=== PATIENT | female | born 1945 | race Caucasian/White ===

== ENCOUNTER 2017-07-27 08:59 | Emergency (ER) | payer MEDICARE, BC ==
--- NOTE | 2017-07-27 09:22 | EDM.PDOC ---
ED HPI GENERAL MEDICAL PROBLEM - General Chief Complaint: Chest Pain Stated Complaint: chest pain Time Seen by Provider: 07/27/17 09:00 Source of Information: Reports: Patient, Family History Limitations: Reports: No Limitations - History of Present Illness INITIAL COMMENTS - FREE TEXT/NARRATIVE: 72-year-old female with no prior cardiac history was in synagogue this morning and developed a substernal chest pain that radiated into her back. She felt generalized malaise and panicky, somewhat short of breath. When it hadn't resolved after 20-30 minutes she came in to be checked but its gone now. She denies any palpitations, abdominal pain, nausea or vomiting, or recent illness or fever. She has never had any cardiac testing in the past other than a preoperative EKG. Onset: Sudden Duration: Other (Pain lasted just over half an hour) Location: Reports: Chest Severity: Moderate Associated Symptoms: Reports: Chest Pain, Malaise, Shortness of Breath. Denies : Cough, Fever/Chills, Headaches, Nausea/Vomiting Chest Pain Score (Numeric/FACES): 6 - Related Data Allergies Allergy/AdvReac Type Severity Reaction Status Date / Time celecoxib [From Celebrex] Allergy Swelling Verified 07/27/17 09:10 Penicillins Allergy Other Verified 07/27/17 09:10 Home Meds: Home Meds Fexofenadine [Vaishnavi] 60 mg PO DAILY 01/18/14 [History] Metoprolol Tartrate [Lopressor] 25 mg PO BID 01/18/14 [History] Omeprazole 20 mg PO DAILY 01/18/14 [History] Pramipexole [Mirapex] 1 mg PO DAILY 01/18/14 [History] Sertraline HCl 50 mg PO DAILY 01/18/14 [History] Calcium Carbonate [Calcium] 500 mg PO BID 01/20/14 [History] Gabapentin 800 mg PO BID 11/17/14 [History] metFORMIN [Glucophage] 1,000 mg PO DAILY 11/17/14 [History] Acetaminophen [Tylenol Extra Strength] 500 mg PO Q6H PRN 05/02/17 [History] atorvaSTATin [Lipitor] 10 mg PO BEDTIME 05/02/17 [History] Past Medical History HEENT History: Reports: Impaired Vision Other HEENT History: wears glasses Cardiovascular History: Reports: High Cholesterol, Hypertension Gastrointestinal History: Reports: Colon Polyp, GERD 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: Psychiatric History: Reports: Depression Endocrine/Metabolic History: Reports: Diabetes, Type II, Obesity/BMI 30+ - Past Surgical History HEENT Surgical History: Reports: Other (See Below) Other HEENT Surgeries/Procedures: wisdom teeth GI Surgical History: Reports: Colonoscopy Female Surgical History: Reports: Oophorectomy Other Female Surgeries/Procedures: 1-oophorectomy Neurological Surgical History: Reports: Lumbar Spine Other Musculoskeletal Surgeries/Procedures:: kassie bunyans, knee surgery Social & Family History - Family History Family Medical History: Noncontributory - Tobacco Use Smoking Status *Q: Never Smoker - Caffeine Use Caffeine Use: Reports: Coffee - Recreational Drug Use Recreational Drug Use: No ED ROS GENERAL - Review of Systems Review Of Systems: See Below Constitutional: Denies: Fever, Chills Respiratory: Reports: Shortness of Breath Cardiovascular: Reports: Chest Pain. Denies: Palpitations GI/Abdominal: Denies: Abdominal Pain, Nausea, Vomiting : Reports: No Symptoms Neurological: Reports: No Symptoms Psychiatric: Reports: Anxiety ED EXAM, GENERAL - Physical Exam Exam: See Below Exam Limited By: No Limitations General Appearance: Alert, No Apparent Distress Respiratory/Chest: No Respiratory Distress, Lungs Clear Cardiovascular: Regular Rate, Rhythm, No Murmur. No: Extra Beats GI/Abdominal: Soft, Non-Tender Neurological: Alert, Oriented EKG INTERPRETATION Rhythm: NSR Course - Vital Signs Last Recorded V/S: Last Vital Signs Temp 98.1 F 07/27/17 09:05 Pulse 68 07/27/17 10:00 Resp 20 07/27/17 10:00 BP 105/72 07/27/17 10:00 Pulse Ox 98 07/27/17 10:00 - Orders/Labs/Meds Orders: Active Orders 24 hr Category Date Time Status EKG Documentation Completion [RC] ASDIRECTED Care 07/27/17 09:21 Active EKG 12 Lead [EK] Routine Ther 07/27/17 09:21 Ordered Labs: Laboratory Tests 07/27/17 07/27/17 Range/Units 09:30 09:30 WBC 5.1 (4.5-11.0) K/uL RBC 4.67 (3.30-5.50) M/uL Hgb 12.6 (12.0-15.0) g/dL Hct 40.1 (36.0-48.0) % MCV 86 (80-98) fL MCH 27 (27-31) pg MCHC 31 L (32-36) % Plt Count 212 (150-400) K/uL Neut % (Auto) 65 (36-66) % Lymph % (Auto) 25 (24-44) % [place] % (Auto) 7 H (2-6) % Eos % (Auto) 3 (2-4) % Baso % (Auto) 0 (0-1) % Sodium 141 (140-148) mmol/L Potassium 4.5 (3.6-5.2) mmol/L Chloride 105 (100-108) mmol/L Carbon Dioxide 29 (21-32) mmol/L Anion Gap 6.7 (5.0-14.0) mmol/L BUN 25 H (7-18) mg/dL Creatinine 1.1 H (0.6-1.0) mg/dL Est Cr Clr Drug Dosing 37.10 mL/min Estimated GFR (MDRD) 49 L (>60) Glucose 129 H (74-106) mg/dL Calcium 8.5 (8.5-10.1) mg/dL Total Bilirubin 0.5 (0.2-1.0) mg/dL AST 16 (15-37) U/L ALT 23 (12-78) U/L Alkaline Phosphatase 85 (46-116) U/L Troponin I < 0.017 (0.000-0.056) ng/mL Total Protein 7.1 (6.4-8.2) g/dL Albumin 3.1 L (3.4-5.0) g/dL Globulin 4.0 H (2.3-3.5) g/dL Albumin/Globulin Ratio 0.8 L (1.2-2.2) - Re-Assessments/Exams Free Text/Narrative Re-Assessment/Exam: 07/27/17 10:21 CBC, CMP, troponin and EKG were obtained. EKG showed no acute findings. Troponin was negative, CBC was normal. Patient was observed for 2 hours in the emergency room and had no further symptoms. She'll return at 3 PM this afternoon in an additional 5 hours for repeat troponin, or return sooner if pain recurs. 07/27/17 16:20 Patient return in a troponin repeated. It was still 0, she had developed no new symptoms. She was encouraged to set up a stress test in the near future or return if symptoms recur. Departure - Departure Time of Disposition: 10:35 Disposition: Home, Self-Care 01 Condition: Good Clinical Impression: Chest pain Qualifiers: Chest pain type: precordial pain Qualified Code(s): R07.2 - Precordial pain - Discharge Information Instructions: Nonspecific Chest Pain Referrals: PCP,None [Primary Care Provider] - Forms: ED Department Discharge Care Plan Goals: Return at 3 PM for an outpatient troponin, I will discuss the results with you when available. - My Orders Last 24 Hours: My Active Orders 07/27/17 09:21 EKG Documentation Completion [RC] ASDIRECTED EKG 12 Lead [EK] Routine - Assessment/Plan Last 24 Hours: My Active Orders 07/27/17 09:21 EKG Documentation Completion [RC] ASDIRECTED EKG 12 Lead [EK] Routine
[2017-07-27 10:32] VITALS: BP 105/72
== END 2017-07-27 10:35 | disposition home or self-care (01) ==
LOC: JP.ED 08:59
DX: R07.2 Precordial pain (principal); E11.9 Type 2 diabetes mellitus without complications; I10 Essential (primary) hypertension; E78.00 Pure hypercholesterolemia, unspecified; K21.9 Gastro-esophageal reflux disease without esophagitis; Z79.84 Long term (current) use of oral hypoglycemic drugs; Z79.899 Other long term (current) drug therapy; Z88.0 Allergy status to penicillin; Z88.1 Allergy status to other antibiotic agents
CPT/HCPCS: 36415; 80053; 84484; 85025; 93005; 99284; 99285-25

== ENCOUNTER 2020-06-27 09:15 | Emergency (ER) | payer MEDICARE ==
[2020-06-27] MEDS ORDERED: Aspirin 81 MG Tab.Chew PO ONE (10:13)
--- NOTE | 2020-06-27 10:13 | EDM.PDOC ---
ED HPI GENERAL MEDICAL PROBLEM - General Chief Complaint: Chest Pain Stated Complaint: PAIN ACROSS CHEST LAST NIGHT Time Seen by Provider: 06/27/20 10:40 Source of Information: Reports: Patient, Old Records, RN History Limitations: Reports: No Limitations - History of Present Illness INITIAL COMMENTS - FREE TEXT/NARRATIVE: 75 yo nonsmoking female with NIDDM presents after a 2 hr period of chest pressure last night that came on while sitting. She had no associated sx's. She called triage today and was told to come to the ER. She has no pHx of CAD. She was seen in the ER in the past once for something like this and nothing was found. No calf pain or LE edema. An ECHO in 03/22 showed no significant pathology. Onset: Gradual Onset Date: 06/26/20 Onset Time: 22:00 Duration: Hour(s): (~2 hrs), Resolved Prior to Arrival Location: Reports: Chest Quality: Reports: Pressure Severity: Mild Improves with: Reports: Other (time) Worsens with: Reports: Other (unknown) Context: Reports: Other (See HPI) Associated Symptoms: Reports: Chest Pain. Denies: Cough, Diaphoresis, Fever/Chills, Nausea/Vomiting, Shortness of Breath (not any worse than usual) Treatments CRITICAL CARE UNIT NURSE: Reports: Other (see below) (none) - Related Data Allergies Allergy/AdvReac Type Severity Reaction Status Date / Time celecoxib [From Celebrex] Allergy Intermediate Swelling Verified 06/27/20 10:10 Penicillins Allergy Unknown Other Verified 06/27/20 10:10 Home Meds: Home Meds Fexofenadine [Vaishnavi] 60 mg PO DAILY 01/18/14 [History] Metoprolol Tartrate [Lopressor] 12.5 mg PO BID 01/18/14 [History] Omeprazole 20 mg PO BEDTIME 01/18/14 [History] Pramipexole [Mirapex] 1 mg PO BEDTIME 01/18/14 [History] Sertraline HCl 50 mg PO DAILY 01/18/14 [History] Calcium Carbonate [Calcium] 500 mg PO BID 01/20/14 [History] Gabapentin 800 mg PO BID 11/17/14 [History] metFORMIN [Glucophage] 1,000 mg PO DAILY 11/17/14 [History] Acetaminophen [Tylenol Extra Strength] 1,000 mg PO Q6H PRN 05/02/17 [History] atorvaSTATin [Lipitor] 10 mg PO BEDTIME 05/02/17 [History] Aspirin 81 mg PO DAILY 06/27/20 [History] Past Medical History HEENT History: Reports: Impaired Vision Other HEENT History: wears glasses Cardiovascular History: Reports: High Cholesterol, Hypertension Gastrointestinal History: Reports: Colon Polyp, GERD 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: Psychiatric History: Reports: Depression Endocrine/Metabolic History: Reports: Diabetes, Type II, Obesity/BMI 30+ - Past Surgical History HEENT Surgical History: Reports: Other (See Below) Other HEENT Surgeries/Procedures: wisdom teeth GI Surgical History: Reports: Colonoscopy Female Surgical History: Reports: Oophorectomy Other Female Surgeries/Procedures: 1-oophorectomy Neurological Surgical History: Reports: Lumbar Spine Other Musculoskeletal Surgeries/Procedures:: kassie bunyans, knee surgery Social & Family History - Family History Family Medical History: No Pertinent Family History - Caffeine Use Caffeine Use: Reports: Coffee ED ROS GENERAL - Review of Systems Review Of Systems: See Below Constitutional: Reports: No Symptoms HEENT: Reports: No Symptoms Respiratory: Reports: No Symptoms Cardiovascular: Reports: Chest Pain, Dyspnea on Exertion (not new) Endocrine: Reports: No Symptoms GI/Abdominal: Reports: No Symptoms : Reports: No Symptoms Musculoskeletal: Reports: No Symptoms Skin: Reports: No Symptoms Neurological: Reports: No Symptoms ED EXAM, GENERAL - Physical Exam Exam: See Below Exam Limited By: No Limitations General Appearance: Alert, WD/WN, No Apparent Distress, Obese Eye Exam: Bilateral Eye: Normal Inspection Ears: Normal External Exam, Normal Canal, Hearing Grossly Normal Ear Exam: Bilateral Ear: Auricle Normal, Canal Normal Nose: Normal Inspection, No Blood Throat/Mouth: Normal Inspection, Normal Lips, Normal Oropharynx, Normal Voice, No Airway Compromise Head: Atraumatic, Normocephalic Neck: Normal Inspection Respiratory/Chest: No Respiratory Distress, Lungs Clear, Normal Breath Sounds, No Accessory Muscle Use Cardiovascular: Regular Rate, Rhythm, No Edema GI/Abdominal: Normal Bowel Sounds, Soft, Non-Tender, No Distention Extremities: Normal Inspection, Normal Range of Motion, Non-Tender, No Pedal Edema Neurological: Alert, Oriented, CN II-XII Intact, Normal Cognition, No Motor/Sensory Deficits Psychiatric: Normal Affect, Normal Mood Skin Exam: Warm, Dry, Intact, Normal Color, No Rash #1 Interpretation EKG Date: 06/27/20 Time: 09:55 Rhythm: NSR Rate (Beats/Min): 69 [place]: Normal P-Wave: Present QRS: Normal ST-T: Normal QT: Normal Comparison: No Change (LVH suggested) Course - Vital Signs Last Recorded V/S: Last Vital Signs Temp 36.5 C 06/27/20 10:29 Pulse 63 06/27/20 13:04 Resp 20 06/27/20 13:04 BP 180/86 H 06/27/20 13:04 Pulse Ox 92 L 06/27/20 13:04 - Orders/Labs/Meds Orders: Active Orders 24 hr Category Date Time Status Cardiac Monitoring [RC] .As Directed Care 06/27/20 09:17 Active EKG Documentation Completion [RC] ASDIRECTED Care 06/27/20 09:16 Active Iopamidol [Isovue-370 (76%)] Med 06/27/20 12:15 Active 100 ml IV . DIRECTED Sodium Chloride 0.9% [Normal Saline] 100 ml Med 06/27/20 12:15 Active IV ASDIRECTED Sodium Chloride 0.9% [Saline Flush] Med 06/27/20 12:01 Active 10 ml FLUSH ONETIME PRN EKG 12 Lead [EK] Routine Ther 06/27/20 09:16 Ordered Medication Orders Sodium Chloride (Normal Saline) 100 mls @ 4 mls/sec IV ASDIRECTED [facility] Last Admin: 06/27/20 12:34 Dose: 4 mls/sec Documented by: SYDNI Iopamidol (Iopamidol 755 Mg/Ml 100 Ml Bottle) 100 ml IV . DIRECTED [facility] Last Admin: 06/27/20 12:34 Dose: 100 ml Documented by: SYDNI Sodium Chloride (Sodium Chloride 0.9% 10 Ml Syringe) 10 ml FLUSH ONETIME PRN PRN Reason: per radiology protocol Last Admin: 06/27/20 12:34 Dose: 10 ml Documented by: SYDNI Labs: Laboratory Tests 06/27/20 06/27/20 06/27/20 Range/Units 10:24 10:24 11:01 WBC 4.8 (4.5-11.0) K/uL RBC 4.35 (3.30-5.50) M/uL Hgb 13.1 (12.0-15.0) g/dL Hct 41.3 (36.0-48.0) % MCV 95 (80-98) fL MCH 30 (27-31) pg MCHC 32 (32-36) % Plt Count 196 (150-400) K/uL D-Dimer, Quantitative 882.67 H (0.0-500.0) ng/mL Sodium 146 (140-148) mmol/L Potassium 4.5 (3.6-5.2) mmol/L Chloride 107 (100-108) mmol/L Carbon Dioxide 31 (21-32) mmol/L Anion Gap 8.4 (5.0-14.0) mmol/L BUN 22 H (7-18) mg/dL Creatinine 1.0 (0.6-1.0) mg/dL Est Cr Clr Drug Dosing 40.83 mL/min Estimated GFR (MDRD) 54 L (>60) Glucose 135 H (74-106) mg/dL Calcium 9.3 (8.5-10.1) mg/dL Troponin I < 0.017 (0.000-0.056) ng/mL Meds: Medications Generic Name Dose Route Start Last Admin Trade Name Freq PRN Reason Stop Dose Admin Sodium Chloride 100 mls @ 4 mls/sec 06/27/20 12:15 06/27/20 12:34 Normal Saline IV 4 mls/sec ASDIRECTED FRANK Administration Iopamidol 100 ml 06/27/20 12:15 06/27/20 12:34 Iopamidol 755 Mg/Ml 100 Ml Bottle IV 100 ml . DIRECTED FRANK Administration Sodium Chloride 10 ml 06/27/20 12:01 06/27/20 12:34 Sodium Chloride 0.9% 10 Ml Syringe FLUSH 10 ml ONETIME PRN Administration per radiology protocol Discontinued Medications Generic Name Dose Route Start Last Admin Trade Name Freq PRN Reason Stop Dose Admin Aspirin 324 mg 06/27/20 10:13 06/27/20 10:22 Aspirin 81 Mg Tab.Chew PO 06/27/20 10:14 324 mg ONETIME ONE Administration - Radiology Interpretation Free Text/Narrative:: CTA chest-neg - Re-Assessments/Exams Free Text/Narrative Re-Assessment/Exam: 06/27/20 12:57 No evidence of PE or LA, will walk around the [place] to see if CP recurs. If not will refer to cardiology as outpatient. Free Text/Narrative Re-Assessment/Exam: 06/27/20 13:11 No chest pain with ambulation, did get SOB. Departure - Departure Time of Disposition: 13:25 Disposition: Home, Self-Care 01 Condition: Fair Clinical Impression: Nonspecific chest pain, BOLIVAR (dyspnea on exertion) Instructions: Nonspecific Chest Pain, Adult, [id number], Shortness of Breath, Adult, [id number] Referrals: Nasra Bravo DO [Primary Care Provider] - Forms: ED Department Discharge Additional Instructions: Continue your current medications. Return for a return of your chest pains. F/U with cardiology to further assess your shortness of breath with exertion. See your family doctor for a review of your blood pressure. Sepsis Event Note (ED) - Focused Exam Vital Signs: Vital Signs Temp Pulse Resp BP Pulse Ox 06/27/20 13:04 63 20 180/86 H 92 L 06/27/20 10:29 36.5 C 64 12 139/78 90 L 06/27/20 10:28 67 16 139/78 92 L 06/27/20 10:11 36.5 C 73 12 143/85 H 95 - My Orders Last 24 Hours: My Active Orders 06/27/20 09:16 EKG Documentation Completion [RC] ASDIRECTED EKG 12 Lead [EK] Routine 06/27/20 09:17 Cardiac Monitoring [RC] .As Directed 06/27/20 12:01 Sodium Chloride 0.9% [Saline Flush] 10 ml FLUSH ONETIME PRN 06/27/20 12:15 Iopamidol [Isovue-370 (76%)] 100 ml IV . DIRECTED Sodium Chloride 0.9% [Normal Saline] 100 ml IV ASDIRECTED - Assessment/Plan Last 24 Hours: My Active Orders 06/27/20 09:16 EKG Documentation Completion [RC] ASDIRECTED EKG 12 Lead [EK] Routine 06/27/20 09:17 Cardiac Monitoring [RC] .As Directed 06/27/20 12:01 Sodium Chloride 0.9% [Saline Flush] 10 ml FLUSH ONETIME PRN 06/27/20 12:15 Iopamidol [Isovue-370 (76%)] 100 ml IV . DIRECTED Sodium Chloride 0.9% [Normal Saline] 100 ml IV ASDIRECTED
[2020-06-27] MEDS ORDERED: Sodium Chloride 0.9% 10 ML Syringe FLUSH PRN (12:01)
[2020-06-27] MEDS ORDERED: Iopamidol 755 Mg/ML 100 ML Bottle IV SCH (12:15)
[2020-06-27] MEDS ORDERED: Sodium Chloride 0.9% 100 ML IV SCH (12:15)
--- NOTE | 2020-06-27 13:01 | CT ---
Ang Chest CLINICAL HISTORY: Chest pain and elevated d-dimer TECHNIQUE: Thin section axial contiguous tomographic sections were taken through the chest after bolus IV iodinated contrast administration. Coronal and sagittal images were reconstructed. Auto dosage reduction and iterative reconstruction techniques employed. FINDINGS: Lung window images show some faint patchy groundglass opacification throughout the lungs bilaterally. Chronology is uncertain. There is some mild bronchial thickening bilaterally. No pulmonary mass is identified. No mediastinal mass or lymphadenopathy is identified. Pulmonary arteries are free of filling defects. Show some minimal atheromatous plaque with no evidence of aneurysm or dissection. There are no pericardial or pleural effusions. There are small stones in the gallbladder IMPRESSION: Scattered mild groundglass opacification bilaterally. Chronology is uncertain. Pneumonitis is not excluded. No pulmonary mass or lymphadenopathy Cholelithiasis
[2020-06-27 13:11] VITALS: BP 180/86; PULSE 63
== END 2020-06-27 13:49 | disposition home or self-care (01) ==
LOC: JP.ED 09:15
DX: R07.9 Chest pain, unspecified (principal); R06.02 Shortness of breath; E78.00 Pure hypercholesterolemia, unspecified; I10 Essential (primary) hypertension; K21.9 Gastro-esophageal reflux disease without esophagitis; E11.9 Type 2 diabetes mellitus without complications; E66.9 Obesity, unspecified; Z68.36 Body mass index [BMI] 36.0-36.9, adult; Z79.82 Long term (current) use of aspirin; Z79.84 Long term (current) use of oral hypoglycemic drugs
CPT/HCPCS: 36415; 71275; 80048; 84484; 85027; 85379; 93005; 99285; A9270; Q9967

== ENCOUNTER 2021-08-23 14:19 | Emergency (ER) | payer MEDICARE ==
[2021-08-23 16:20] VITALS: BP 128/76; PULSE 82
== END 2021-08-23 16:50 | disposition home or self-care (01) ==
LOC: JP.ED 14:19
DX: I95.1 Orthostatic hypotension (principal); R53.1 Weakness; E78.00 Pure hypercholesterolemia, unspecified; I10 Essential (primary) hypertension; K21.9 Gastro-esophageal reflux disease without esophagitis; E11.9 Type 2 diabetes mellitus without complications; E66.9 Obesity, unspecified; Z68.37 Body mass index [BMI] 37.0-37.9, adult; Z88.0 Allergy status to penicillin; Z88.8 Allergy status to other drugs, medicaments and biological substances
CPT/HCPCS: 36415; 80048; 81001; 84443; 85025; 85651; 87086; 93005; 93010; 99282; 99285-25

== ENCOUNTER 2021-09-21 05:30 | Day surgery (SDC) | payer MEDICARE ==
[2021-09-21] MEDS ORDERED: Dextrose 5%-Lactated Ringers 1,000 ML IV SCH (06:00)
[2021-09-21] MEDS ORDERED: fentaNYL 100 MCG/2 ML SDV ONE (07:10)
[2021-09-21] MEDS ORDERED: Propofol 200 MG/20 ML SDV ONE (07:10)
[2021-09-21] MEDS ORDERED: Ondansetron 4 MG/2 ML SDV ONE (07:11)
[2021-09-21 09:01] VITALS: BP 112/61; PULSE 71
== END 2021-09-21 09:57 | disposition home or self-care (01) ==
LOC: JP.SDS 05:30
PROVIDERS: ATTEND Surgery
DX: R13.10 Dysphagia, unspecified (principal); K44.9 Diaphragmatic hernia without obstruction or gangrene; K29.60 Other gastritis without bleeding; T18.2XXA Foreign body in stomach, initial encounter
CPT/HCPCS: 43239; 87081; 88305; J2405; J2704; J3010; J7121

== ENCOUNTER 2022-08-08 12:53 | Emergency (ER) | payer MEDICARE ==
[2022-08-08] MEDS ORDERED: Ondansetron 4 MG/2 ML SDV IVPUSH ONE (14:22)
[2022-08-08] MEDS ORDERED: Ketorolac 30 MG/ML SDV IVPUSH ONE (14:22)
[2022-08-08] MEDS ORDERED: Sodium Chloride 0.9% 1,000 ML IV SCH (14:30)
[2022-08-08 14:34] LABS: HEMATOCRIT 38.5 % (34.3-46.0); HEMOGLOBIN 12.9 g/dL (11.2-15.5); MEAN CORPUSCULAR HEMOGLOBIN 30.1 pg (31.6-35.5); MEAN CORPUSCULAR HGB CONC 33.5 g/dL (31.6-35.5); MEAN CORPUSCULAR VOLUME 89.7 fL (81.4-99.0); RED BLOOD CELL COUNT 4.29 M/uL (3.77-5.24); WHITE BLOOD CELL COUNT,WBC 6.7 K/uL (3.2-11.0)
[2022-08-08 14:52] LABS: INR 1.1; PROTHROMBIN TIME 10.8 sec (9.2-10.6)
[2022-08-08 14:54] LABS: A/G RATIO 0.9 (1.2-2.2); ALANINE AMINOTRANSFERASE,ALT 21 U/L (12-78); ALBUMIN 3.6 g/dL (3.4-5.0); ALKALINE PHOSPHATASE 62 U/L (46-116); ANION GAP 5.2 mmol/L (5.0-14.0); ASPARTATE AMNIOTRANSFERASE,AST 16 U/L (15-37); BILIRUBIN TOTAL 0.8 mg/dL (0.2-1.0); BLOOD UREA NITROGEN,BUN 25 mg/dL (7-18); CALCIUM 9.8 mg/dL (8.5-10.1); CARBON DIOXIDE,CO2 32 mmol/L (21-32); CHLORIDE,CL 105 mmol/L (100-108); CREATININE 1.4 mg/dL (0.6-1.0); ESTIMATED GFR 39 mL/min (>60); GLUCOSE RANDOM 115 mg/dL (74-106); POTASSIUM,K 4.4 mmol/L (3.6-5.2); PROTEIN TOTAL,TP 7.5 g/dL (6.4-8.2); SODIUM,NA 142 mmol/L (140-148)
[2022-08-08 15:48] LABS: APPEARANCE,URINE CLEAR (CLEAR); BILIRUBIN,URINE NEGATIVE (NEGATIVE); COLOR,URINE YELLOW (YELLOW); GLUCOSE,URINE NEGATIVE (NEGATIVE); KETONES,URINE NEGATIVE (NEGATIVE); LEUKOCYTE ESTERASE,URINE SMALL (NEGATIVE); NITRITE,URINE NEGATIVE (NEGATIVE); OCCULT BLOOD,URINE NEGATIVE (NEGATIVE); PROTEIN,URINE 30 mg/dL (NEGATIVE); UROBILINOGEN,URINE 0.2 EU/dL (0.2-1.0)
[2022-08-08 15:54] LABS: BACTERIA,URINE MODERATE; EPITHELIAL CELLS,URINE MODERATE; RBC,URINE 0-5 (0-5); WBC,URINE 20-30 (0-5)
[2022-08-08 15:55] LABS: AMORPHOUS SEDIMENT,URINE NOT SEEN; MUCUS,URINE NOT SEEN
[2022-08-08 16:03] VITALS: BP 147/65; PULSE 98
== END 2022-08-08 16:26 | disposition home or self-care (01) ==
LOC: JP.ED 12:53
DX: N39.0 Urinary tract infection, site not specified (principal); M54.50 Low back pain, unspecified; I10 Essential (primary) hypertension; K21.9 Gastro-esophageal reflux disease without esophagitis; E11.9 Type 2 diabetes mellitus without complications; E78.00 Pure hypercholesterolemia, unspecified; Z88.0 Allergy status to penicillin; Z88.8 Allergy status to other drugs, medicaments and biological substances; Z79.899 Other long term (current) drug therapy
CPT/HCPCS: 36415; 74176; 80053; 81001; 83605; 85027; 85610; 96361; 96374; 96375; 99283; 99284; J1885; J2405; J7030

== ENCOUNTER 2024-09-13 12:48 | Emergency (ER) | payer MEDICARE ==
[2024-09-13 17:32] VITALS: BP 150/92; PULSE 87
== END 2024-09-13 17:32 | disposition home or self-care (01) ==
LOC: JP.ED 12:48
DX: S62.231A Other displaced fracture of base of first metacarpal bone, right hand, initial encounter for closed fracture (principal); S01.81XA Laceration without foreign body of other part of head, initial encounter; I10 Essential (primary) hypertension; E78.00 Pure hypercholesterolemia, unspecified; K21.9 Gastro-esophageal reflux disease without esophagitis; E11.9 Type 2 diabetes mellitus without complications; M19.90 Unspecified osteoarthritis, unspecified site; E66.9 Obesity, unspecified; Z88.0 Allergy status to penicillin; Z88.8 Allergy status to other drugs, medicaments and biological substances; Z79.84 Long term (current) use of oral hypoglycemic drugs; Z79.82 Long term (current) use of aspirin; Z79.51 Long term (current) use of inhaled steroids; Z79.899 Other long term (current) drug therapy; Z68.38 Body mass index [BMI] 38.0-38.9, adult; V48.0XXA Car driver injured in noncollision transport accident in nontraffic accident, initial encounter
CPT/HCPCS: 12011; 29125; 70450; 73090; 73130; 73610; 99283; 99284; A9270

== ENCOUNTER 2024-12-01 07:12 | Day surgery (SDC) | payer MEDICARE ==
[2024-12-01] MEDS ORDERED: Midazolam 1 MG/ML 2 ML SDV ONE (07:24)
[2024-12-01] MEDS ORDERED: Propofol 200 MG/20 ML SDV ONE (07:24)
[2024-12-01] MEDS ORDERED: fentaNYL 100 MCG/2 ML SDV ONE (07:24)
[2024-12-01 07:38] LABS: PLATELET COUNT,PLT 224.0 K/uL (130-375); RED BLOOD CELL COUNT 4.79 M/uL (3.77-5.24); WHITE BLOOD CELL COUNT,WBC 6.3 K/uL (3.2-11.0)
[2024-12-01] MEDS: Nozin Nasal Sanitizer NASBOTH ONE (07:46)
[2024-12-01 07:53] LABS: BLOOD UREA NITROGEN,BUN 31.0 mg/dL (7-18); CARBON DIOXIDE,CO2 31.0 mmol/L (21-32); CHLORIDE,CL 103.0 mmol/L (100-108); CREATININE 1.3 mg/dL (0.6-1.0); EST CRCL DRUG DOSING (CG) 27.56 mL/min; ESTIMATED GFR 42.0 mL/min (>60); GLUCOSE RANDOM 124.0 mg/dL (74-106); POTASSIUM,K 5.4 mmol/L (3.6-5.2); SODIUM,NA 140.0 mmol/L (140-148)
[2024-12-01] MEDS: Scopalamine 1mg/3day Transdermal Patch TOP ONE (08:08)
[2024-12-01] MEDS: Lactated Ringers 1,000 ML IV SCH (08:22)
[2024-12-01] MEDS ORDERED: Ondansetron 4 MG/2 ML SDV ONE (08:34)
[2024-12-01] MEDS ORDERED: Dexamethasone 4 MG/ML SDV ONE (08:34)
[2024-12-01 10:38] VITALS: BP 135/62; PULSE 79
== END 2024-12-01 11:15 | disposition home or self-care (01) ==
LOC: JP.SDS 07:12
PROVIDERS: ATTEND Specialist
DX: G56.01 Carpal tunnel syndrome, right upper limb (principal); E78.00 Pure hypercholesterolemia, unspecified; I10 Essential (primary) hypertension; E11.9 Type 2 diabetes mellitus without complications; E66.9 Obesity, unspecified; Z68.30 Body mass index [BMI] 30.0-30.9, adult; Z88.8 Allergy status to other drugs, medicaments and biological substances; Z88.0 Allergy status to penicillin; Z79.84 Long term (current) use of oral hypoglycemic drugs; Z79.82 Long term (current) use of aspirin; Z79.899 Other long term (current) drug therapy
CPT/HCPCS: 36415; 64721; 80048; 85027; A9270; J0690; J1100; J2250; J2405; J2704; J3010; J7120; 01810-QZ; J0665